=== PATIENT | male | born 1965 | race Caucasian/White ===

== ENCOUNTER 2018-07-30 06:11 | Emergency (ER) | payer BC ==
[2018-07-30 06:26] VITALS: RESP 20
[2018-07-30 07:23] VITALS: O2SAT 97
[2018-07-30 07:32] VITALS: BP 186/83; PULSE 96; TEMP 98
== END 2018-07-30 07:32 | disposition home or self-care (01) ==
LOC: ED 06:11
DX: E11.649 Type 2 diabetes mellitus with hypoglycemia without coma (principal); Z79.4 Long term (current) use of insulin
CPT/HCPCS: 82962; 99283